=== PATIENT | male | born 1955 | race African-American/Black ===

== ENCOUNTER 2016-05-20 12:04 | Emergency (ER) | payer OTHER ==
[2016-05-20 12:39] VITALS: BP 121/63; PULSE 62; TEMP 97.9
--- NOTE | 2016-05-20 12:59 | PDOC ---
History of Present Illness - General Chief Complaint: Rash Stated Complaint: RASH FACE NECK BOTH ARMS Time Seen by Provider: 05/20/16 12:44 - History of Present Illness Initial Comments: 05/20/16 13:25 Complaint: Itchy rash History of present illness: Developed an itchy rash several days ago after cleaning up some leaves. The rash is present on his thighs, forearms, neck, and face. He has had poison deyanira in the past with similar symptoms. No other suspicious exposures Review of systems: No chest pain, shortness of breath, abdominal pain, nausea, vomiting, diarrhea, visual or focal neurologic symptoms, unsteadiness of gait, fever/chills, URI symptoms, sore throat, cough, dysuria or frequency, hematemesis or melena Past medical history: Patient is a healthy male with no active medical or surgical problems Family/social history reviewed and noncontributory Physical exam: Alert and oriented well-developed well-nourished no acute distress cheerful and cooperative Afebrile, vital signs stable Skin exam reveals an eczematous eruption of the anterior and medial thighs, forearms, neck, and face, without weeping, excoriation, or sign of infection. There is a linear pattern to some of the lesions. There are no inflamed nodes. Chest is clear CV is normal, Abdomen is benign Impression: Plant dermatitis, eczema Plan: Topical steroid and antihistamine. Skincare. Try to avoid systemic steroids if possible. Follow-up if progression or no improvement. Past History - Past Medical History Allergies/Adverse Reactions: Allergies Allergy/AdvReac Type Severity Reaction Status Date / Time SODIUM PENTATHOL AdvReac Uncoded 05/20/16 12:10 Home Medications: Ambulatory Orders Hydroxyzine Pamoate [Vistaril -] 25 - 50 mg PO TID PRN #20 capsule 05/20/16 Triamcinolone 0.1% Cream [Aristocort 0.1% Cream -] 1 applic TP TID #1 tube 05/20 - Psycho/Social/Smoking Cessation Hx Anxiety: No Suicidal Ideation: No Smoking History: Never smoked Have you smoked in the past 12 months: No Hx Alcohol Use: No Drug/Substance Use Hx: No Substance Use Type: None *Physical Exam - Vital Signs Last Vital Signs Temp Pulse Resp BP Pulse Ox 97.9 F 62 14 121/63 98 05/20/16 12:12 05/20/16 12:12 05/20/16 12:12 05/20/16 12:12 05/20/16 12:12 *DC/Admit/Observation/Transfer Diagnosis at time of Disposition: Rhus dermatitis - Discharge Dispostion Disposition: HOME Condition at time of disposition: Stable Admit: No - Prescriptions Prescriptions: Triamcinolone 0.1% Cream [Aristocort 0.1% Cream -] 1 applic TP TID #1 tube Hydroxyzine Pamoate [Vistaril -] 25 - 50 mg PO TID PRN #20 capsule PRN Reason: For Itching - Referrals Referrals: Berenice Rowell [Staff Physician] - - Patient Instructions Printed Discharge Instructions: Poisonous Plants: Deyanira, [place], and [place]: Beware the Oils Additional Instructions: Avoid hot baths or showers. Cool compresses. Wet-to-dry dressings if there is oozing. Medication as directed. Take prescribed itching pills as directed. They may make you drowsy. They will be helpful at night to keep her from scratching during sleep. If you prefer during the day you may use a nonsedating antihistamine such as Claritin or Ginette, available [id number]. Cleaned thoroughly under the fingernails and wash clothing and bed clothes to remove possible plant oils. See drum filler if there is no improvement after one week.
== END 2016-05-20 13:13 | disposition home or self-care (01) ==
LOC: FER 12:04
DX: L23.7 Allergic contact dermatitis due to plants, except food (principal)
CPT/HCPCS: 99281-25